=== PATIENT | male | born 1965 | race Caucasian/White ===

== ENCOUNTER 2016-05-12 19:44 | Emergency (ER) | payer SELFPAY ==
[~2016-05-12] VITALS: Ht 180.3 cm; Wt 88.0 kg
[2016-05-12 19:47] VITALS: BP 169/89; PULSE 70; RESP 14; TEMP 97.3; O2SAT 97
[2016-05-12 21:39] LABS: ANION GAP 9 MEQ/L (5-15); AST (GOT) 44 U/L (15-37); BICARBONATE 26.2 MEQ/L (21.0-32.0); BLOOD UREA NITROGEN 18 MG/DL (7-18); CHLORIDE 102 MEQ/L (98-107); GLOMERULAR FILTRATION RATE 64 ML/MIN (>89); POTASSIUM 3.8 MEQ/L (3.5-5.1); SODIUM (NA) 137 MEQ/L (136-145)
[2016-05-12 21:42] LABS: ALKALINE PHOSPHATASE 121 U/L (45-117); ALT (GPT) 67 U/L (12-78); TOTAL BILIRUBIN ADULT 1.4 MG/DL (0.2-1.0)
[2016-05-12 21:50] LABS: AUTOMATED NEUTROPHIL # 8.5 TH/MM3 (1.8-7.7); BASOPHIL # 0.1 TH/MM3 (0-0.2); BASOPHIL % 0.4 % (0.0-2.0); EOSINOPHIL # 0.1 TH/MM3 (0-0.4); EOSINOPHIL % 0.8 % (0.0-4.0); HEMATOCRIT 48.1 % (39.0-51.0); HEMO FLAGS DIFF FINAL; LYMPH % 25.3 % (9.0-44.0); LYMPHOCYTE # 3.5 TH/MM3 (1.0-4.8); MEAN CELL VOLUME 85.2 FL (80.0-100.0); MEAN CORPUSCULAR HEMOGLOBIN 30.3 PG (27.0-34.0); MEAN CORPUSCULAR HGB CONC 35.6 % (32.0-36.0); MONO % 12.3 % (0.0-8.0); NEUT % 61.2 % (16.0-70.0); PLATELET COUNT 242 TH/MM3 (150-450); RED BLOOD COUNT 5.65 MIL/MM3 (4.50-5.90); RED CELL DISTRIBUTION WIDTH 13.1 % (11.6-17.2); WHITE BLOOD COUNT 13.9 TH/MM3 (4.0-11.0)
[2016-05-12 22:33] LABS: BACTERIA, URINE RARE /hpf; BLOOD, URINE NEG (NEG); COMMENT (UR) CULTURE INDICATED; CULTURE IF INDICATED CULTURE INDICATED; GLUCOSE,URINE NEG (NEG); KETONE, URINE NEG (NEG); MUCUS URINE FEW /lpf (OCC); NITRITE,URINE NEG (NEG); PH, URINE 5.5 (5.0-8.5); SQUAMOUS EPITHELIAL CELL URINE 1 /hpf (0-5); URINE COLOR DARK-YELLOW (YELLW/STRAW)
[2016-05-12 23:46] VITALS: BP 133/82; PULSE 125; PULSE 72; RESP 14; O2SAT 98
--- NOTE | 2016-05-12 23:47 | PD ---
HPI Chief Complaint: Complaint Time Seen by Provider: 23:42 Travel History International Travel<30 days: No Contact w/Intl Traveler<30days: No Traveled to known affect area: No History of Present Illness HPI 51 year-old male presents to the emergency department for complaint of right flank pain and back pain for several weeks as well as 2 days of blood in his urine. Patient denies alcohol use admits to occasional tobacco use and denies substance use. Patient denies any chronic medical conditions and no prior history of CAD hypertension dyslipidemia diabetes peptic ulcer disease gallbladder disease pancreatitis or kidney stones. Patient's had no fever or chills. Patient's had no shortness of breath or cough. Patient denies chest pain. Patient denies any abdominal pain. Patient's had no dysuria frequency or urgency. Patient denies any lower extremity numbness tingling or weakness. No bladder or bowel dysfunction. No saddle anesthesia. The patient rates his pain 8/10 in intensity and is not able to identify exacerbating or alleviating factors. FORMERLY [facility] Past Medical History Narrative Medical Negative past history; left thumb and right hip surgery; no alcohol use or substance use occasional tobacco use; nursing notes reviewed Social History Tobacco Use: Yes Allergies-Medications (Allergen,Severity, Reaction): Coded Allergies: No Known Allergies (Unverified , 05/12/16) Reported Meds & Prescriptions Reported Meds & Active Scripts Active Cardizem LA (Diltiazem ER 24 HR) 120 Mg Abraham 120 Mg PO DAILY Cipro (Ciprofloxacin HCl) 500 Mg Tab 500 Mg PO BID 7 Days Narrative Medication None Review of Systems Except as stated in HPI: all other systems reviewed are Neg General / Constitutional: Positive: Weight Loss, No: Fever, Chills HENT: Positive: Vertigo, Lightheadedness, No: Headaches, Congestion Cardiovascular: No: Chest Pain or Discomfort, Diaphoresis Respiratory: No: Shortness of Breath Gastrointestinal: No: Nausea, Vomiting, Abdominal Pain Genitourinary: Positive: Decreased Urinary Output, Flank Pain, No: Urgency, Frequency, Dysuria Musculoskeletal: No: Myalgias, Arthralgias Skin: No Rash Neurologic: Positive: Dizziness, No: Weakness, Focal Abnormalities, Coordination Problem, Headache, Change in Mentation Psychiatric: No: Anxiety Hematologic/Lymphatic: No: Lymph Node Enlargement Physical Exam Narrative GENERAL: Well-developed disheveled male in no acute distress no respiratory distress SKIN: Warm and dry. HEAD: Normocephalic. EYES: No scleral icterus. No injection or drainage. NECK: Supple, trachea midline. No JVD or lymphadenopathy. CARDIOVASCULAR: Regular rate and rhythm without murmurs, gallops, or rubs. RESPIRATORY: Breath sounds equal bilaterally. No accessory muscle use. GASTROINTESTINAL: Abdomen soft, non-tender, nondistended. MUSCULOSKELETAL: No cyanosis, or edema. BACK: Nontender without obvious deformity. Right-sided CVA tenderness. Negative straight leg raising bilaterally deep tendon reflexes 2+ and symmetric bilateral lower extremities sensory exam intact motor strength 5 over 5 Data Data Last Documented VS Orders Complete Blood Count With Diff (05/12/16 20:26) Comprehensive Metabolic Panel (05/12/16 20:26) Urinalysis - C+S If Indicated (05/12/16 20:26) Iv Access Insert/Monitor (05/12/16 20:26) Oxygen Administration (05/12/16 20:26) Oximetry (05/12/16 20:26) Urine Culture (05/12/16 20:47) Ct Abd/Pel W/O Iv Contrast (05/12/16 ) Chest, Single Ap (05/12/16 ) Troponin I (05/12/16 23:48) Ckmb (Isoenzyme) Profile (05/12/16 23:48) Electrocardiogram (05/12/16 ) Lipase (05/12/16 23:48) CKMB (05/12/16 20:42) CKMB% (05/12/16 20:42) Ketorolac Inj (Toradol Inj) (05/13/16 00:30) Sodium Chlorid 0.9% 500 Ml Inj (Ns 500 M (05/13/16 00:30) Magnesium (Mg) (05/13/16 00:27) Sodium Chlorid 0.9% 500 Ml Inj (Ns 500 M (05/13/16 02:15) Ceftriaxone Inj (Rocephin Inj) (05/13/16 03:00) Mandatory Outpatient Referral (05/13/16 02:52) Sodium Chlor 0.9% 1000 Ml Inj (Ns 1000 M (05/13/16 04:00) Diltiazem Cd (Cardizem Cd) (05/13/16 05:00) Labs Laboratory Tests Test 05/12/16 20:42 Magnesium Level 2.1 MG/DL Total Creatine Kinase 245 U/L Creatine Kinase MB 2.5 NG/ML Troponin I LESS THAN 0.02 NG/ML Lipase 168 U/L MDM Medical Decision Making Medical Screen Exam Complete: Yes Emergency Medical Condition: Yes Medical Record Reviewed: Yes Interpretation(s) Laboratory Tests Test 05/12/16 05/12/16 20:42 20:47 White Blood Count 13.9 TH/MM3 Red Blood Count 5.65 MIL/MM3 Hemoglobin 17.1 GM/DL Hematocrit 48.1 % Mean Corpuscular Volume 85.2 FL Mean Corpuscular Hemoglobin 30.3 PG Mean Corpuscular Hemoglobin 35.6 % Concent Red Cell Distribution Width 13.1 % Platelet Count 242 TH/MM3 Mean Platelet Volume 10.6 FL Neutrophils (%) (Auto) 61.2 % Lymphocytes (%) (Auto) 25.3 % Monocytes (%) (Auto) 12.3 % Eosinophils (%) (Auto) 0.8 % Basophils (%) (Auto) 0.4 % Neutrophils # (Auto) 8.5 TH/MM3 Lymphocytes # (Auto) 3.5 TH/MM3 Monocytes # (Auto) 1.7 TH/MM3 Eosinophils # (Auto) 0.1 TH/MM3 Basophils # (Auto) 0.1 TH/MM3 CBC Comment DIFF FINAL Differential Comment Sodium Level 137 MEQ/L Potassium Level 3.8 MEQ/L Chloride Level 102 MEQ/L Carbon Dioxide Level 26.2 MEQ/L Anion Gap 9 MEQ/L Blood Urea Nitrogen 18 MG/DL Creatinine 1.19 MG/DL Estimat Glomerular Filtration 64 ML/MIN Rate Random Glucose 106 MG/DL Calcium Level 8.9 MG/DL Total Bilirubin 1.4 MG/DL Aspartate Amino Transf 44 U/L (AST/SGOT) Alanine Aminotransferase 67 U/L (ALT/SGPT) Alkaline Phosphatase 121 U/L Total Protein 8.0 GM/DL Albumin 3.8 GM/DL Urine Color DARK-YELLOW Urine Turbidity CLEAR Urine pH 5.5 Urine Specific Dahlgren 1.032 Urine Protein TRACE mg/dL Urine Glucose (UA) NEG mg/dL Urine Ketones NEG mg/dL Urine Occult Blood NEG Urine Nitrite NEG Urine Bilirubin SMALL Urine Urobilinogen 8.0 MG/DL Urine Leukocyte Esterase SMALL Urine WBC 11 /hpf Urine Squamous Epithelial 1 /hpf Cells Urine Bacteria RARE /hpf Urine Mucus FEW /lpf Microscopic Urinalysis Comment CULTURE INDICATED Differential Diagnosis Flank pain ureteral lithiasis obstructive uropathy renal mass biliary colic pancreatitis musculoskeletal pain UTI Narrative Course IV access obtained specimens questions for resulting CT kidney stone protocol ordered Patient with mild leukocytosis 13,900 with 12% monocytosis by automated differential;metabolic panel remarkable for total bilirubin of 1.4 values otherwise grossly normal range; urinalysis is positive for urobilinogen white blood cells and rare bacteria no blood is identified Patient feeling clinically improved; patient given dose of IV fluids along with Toradol 30 mg IV Rocephin 1 g IV piggyback and one-time dose of Cardizem cd. Patient has identified that he does not have a primary care provider does not have insurance lives at a [facility] but he does share that the [facility] does have a phone number that is reliable and he can receive communication to the [facility] and also through the phone number that he has provided. Patient is aware of the need to have acutely information so the case management can contact him in order to get him established with a primary care physician as well as resources in order for him to continue the medications as prescribed for his diagnosis of atrial fibrillation. Diagnosis Primary Impression: UTI (urinary tract infection) Additional Impression: Atrial fibrillation Referrals: [facility] 2 days Primary Care Physician call for appointment Patient Instructions: General Instructions Additional Instructions: Complete course of antibiotic as prescribed Take Cardizem as prescribed Take 81 mg aspirin daily Follow-up with [facility]/primary care provider Return to the emergency department for fever pain or any concerns Take acetaminophen/Tylenol every 4 hours as needed for fever 100.4F or greater or for minor pain Take ibuprofen/Advil/Motrin every 6-8 hours as needed for fever 100.4F or greater or for pain associated with inflammation Increase fluid hydration Med/Other Pt SpecificInfo: Prescription(s) given Scripts Diltiazem ER 24 HR (Cardizem LA)120 Mg [id number] Mg PO DAILY #30 TAB Ref 0 Prov:Bridgett Ying MD 05/13/16 Ciprofloxacin (Cipro)500 Mg [id number] Mg PO BID 7 Days Ref 0 Prov:Bridgett Ying MD 05/13/16 Disposition: 01 DISCHARGE HOME Condition: Stable Bridgett Ying MD May 12, 2016 23:47 Anion Gap 9 MEQ/L Blood Urea Nitrogen 18 MG/DL Creatinine 1.19 MG/DL Estimat Glomerular Filtration 64 ML/MIN Rate Random Glucose 106 MG/DL Calcium Level 8.9 MG/DL Total Bilirubin 1.4 MG/DL Aspartate Amino Transf 44 U/L (AST/SGOT) Alanine Aminotransferase 67 U/L (ALT/SGPT) Alkaline Phosphatase 121 U/L Total Protein 8.0 GM/DL Albumin 3.8 GM/DL Urine Color DARK-YELLOW Urine Turbidity CLEAR Urine pH 5.5 Urine Specific Dahlgren 1.032 Urine Protein TRACE mg/dL Urine Glucose (UA) NEG mg/dL Urine Ketones NEG mg/dL Urine Occult Blood NEG Urine Nitrite NEG Urine Bilirubin SMALL Urine Urobilinogen 8.0 MG/DL Urine Leukocyte Esterase SMALL Urine WBC 11 /hpf Urine Squamous Epithelial 1 /hpf Cells Urine Bacteria RARE /hpf Urine Mucus FEW /lpf Microscopic Urinalysis Comment CULTURE INDICATED Differential Diagnosis Flank pain ureteral lithiasis obstructive uropathy renal mass biliary colic pancreatitis musculoskeletal pain UTI Narrative Course IV access obtained specimens questions for resulting CT kidney stone protocol ordered Patient with mild leukocytosis 13,900 with 12% monocytosis by automated differential;metabolic panel remarkable for total bilirubin of 1.4 values otherwise grossly normal range; urinalysis is positive for urobilinogen white blood cells and rare bacteria no blood is identified Patient feeling clinically improved; patient given dose of IV fluids along with Toradol 30 mg IV Rocephin 1 g IV piggyback and one-time dose of Cardizem cd. Patient has identified that he does not have a primary care provider does not have insurance lives at a [facility] but he does share that the [facility] does have a phone number that is reliable and he can receive communication to the [facility] and also through the phone number that he has provided. Patient is aware of the need to have acutely information so the case management can contact him in order to get him established with a primary care physician as well as resources in order for him to continue the medications as prescribed for his diagnosis of atrial fibrillation. Diagnosis Primary Impression: UTI (urinary tract infection) Additional Impression: Atrial fibrillation Referrals: [facility] 2 days Primary Care Physician call for appointment Patient Instructions: General Instructions Additional Instructions: Complete course of antibiotic as prescribed Take Cardizem as prescribed Take 81 mg aspirin daily Follow-up with [facility]/primary care provider Return to the emergency department for fever pain or any concerns Take acetaminophen/Tylenol every 4 hours as needed for fever 100.4F or greater or for minor pain Take ibuprofen/Advil/Motrin every 6-8 hours as needed for fever 100.4F or greater or for pain associated with inflammation Increase fluid hydration Med/Other Pt SpecificInfo: Prescription(s) given Scripts Diltiazem ER 24 HR (Cardizem LA)120 Mg [id number] Mg PO DAILY #30 TAB Ref 0 Prov:Bridgett Ying MD 05/13/16 Ciprofloxacin (Cipro)500 Mg [id number] Mg PO BID 7 Days Ref 0 Prov:Bridgett Ying MD 05/13/16 Disposition: 01 DISCHARGE HOME Condition: Stable Bridgett Ying MD May 12, 2016 23:47
[2016-05-13 00:14] LABS: CREATINE KINASE 245 U/L (39-308)
[2016-05-13 00:27] LABS: CKMB 2.5 NG/ML (0.5-3.6)
[2016-05-13] MEDS ORDERED: KETOROLAC TROMETHAMINE 30 MG/ML (IVP) VIAL IV PUSH ONE (00:30)
[2016-05-13] MEDS ORDERED: SODIUM CHLORID 0.9% 500 ML INJ 500 ML IV ONE ×2 (00:30→02:15)
--- NOTE | 2016-05-13 00:51 | RADRPT ---
EXAM DATE/TIME: 05/12/2016 23:56 [facility] COMPARISON: No previous studies available for comparison. INDICATIONS : Shortness of breath. MEDICAL HISTORY : None. SURGICAL HISTORY : None. ENCOUNTER: Initial ACUITY: 1 day PAIN SCORE: 0/10 LOCATION: Bilateral chest FINDINGS: A single view of the chest demonstrates the lungs to be symmetrically aerated without evidence of mas s, infiltrate or effusion. The cardiomediastinal contours are unremarkable. Osseous structures are intact. CONCLUSION: The lungs are clear. Lul Handy MD on May 13, 2016 at 0:50 Board Certified Radiologist. This report was verified electronically.
--- NOTE | 2016-05-13 00:51 | RADRPT ---
EXAM DATE/TIME: 05/12/2016 23:53 [facility] COMPARISON: No previous studies available for comparison. INDICATIONS : Right flank abdominal pain today. ORAL CONTRAST: No oral contrast ingested. RADIATION DOSE: 8.50 CTDIvol (mGy) MEDICAL HISTORY : None SURGICAL HISTORY : None. ENCOUNTER: Initial ACUITY: 1 day PAIN SCALE: 8/10 LOCATION: Right flank TECHNIQUE: Volumetric scanning of the abdomen and pelvis was performed. Using automated exposure control and ad justment of the mA and/or kV according to patient size, radiation dose was kept as low as reasonably achievable to obtain optimal diagnostic quality images. FINDINGS: Right side: No evidence of hydronephrosis. No calcified renal stones. The right ureter is normal in dimension. Left side: No evidence of hydronephrosis. No calcified renal stones. The left ureter is normal in dimension. Bladder: Smooth margins. No calcifications within the lumen. Other: The visualized lower lungs are clear. No dilated loops of small or large bowel. The appendix is mario ntified and is normal in size, retrocecal in location. Scattered vascular calcification in the deep pelvic structures. No calcified gallstones. Lobular configuration to both adrenal glands suggesting bilateral adrenal hypertrophy. CONCLUSION: Negative renal colic CT. Lul Handy MD on May 13, 2016 at 0:47 Board Certified Radiologist. This report was verified electronically.
[2016-05-13] MEDS ORDERED: DILT1TAB12 PO (02:46)
[2016-05-13] MEDS ORDERED: CIPR-9 PO (02:46)
[2016-05-13] MEDS ORDERED: cefTRIAXone INJ 1,000 MG in SODIUM CHLORIDE 0.9% INJ 100 ML IV ONE (03:00)
[2016-05-13] MEDS ORDERED: DILTIAZEM-CD 120 MG CAP ER PO ONE ×2 (03:00→05:00)
[2016-05-13 03:22] VITALS: BP 82/52; PULSE 99; RESP 14; O2SAT 98
[2016-05-13 04:00] VITALS: BP 115/79; PULSE 97; RESP 14; O2SAT 99
[2016-05-13] MEDS ORDERED: SODIUM CHLOR 0.9% 1000 ML INJ 1,000 ML IV ONE (04:00)
[2016-05-13 04:52] VITALS: BP 141/87; PULSE 86; RESP 14; O2SAT 98
--- NOTE | 2016-05-15 22:28 | EKG ---
Date Performed: 05/13/2016 Time Performed: 00:05:09 PTAGE: 51 years EKG: ATRIAL FIBRILLATION WITH RAPID VENTRICULAR RESPONSE MINIMAL ST DEPRESSION ABNORMAL RHYTHM E CG NO PREVIOUS TRACING DOCTOR: Yonathan Cuba Interpretating Date/Time 05/15/2016 22:27:02
== END 2016-05-13 05:48 | disposition home or self-care (01) ==
LOC: NEPC 19:44
DX: N39.0 Urinary tract infection, site not specified (principal); I48.91 Unspecified atrial fibrillation
CPT/HCPCS: 71010; 74176; 80053; 81001; 82550; 82552; 83690; 83735; 84484; 85025; 87086; 93005; 96374; 96375; 99284; J0696; J1885; J7030; J7040